=== PATIENT | male | born 1965 | race Caucasian/White ===

== ENCOUNTER → 2021-05-07 | Day surgery (SDC) | payer OTHER ==
[~2021-05-07] VITALS: Ht 180.3 cm; Wt 106.6 kg
[~2021-05-07] MED LIST: ASPIRIN EC81 MG PO; ATORVASTATIN CA80 MG PO; COZAAR100 MG PO; FARXIGA10 MG PO; GLIMEPIRIDE1 MG PO; METOPROLOL SUCC50 MG PO; PERCOCET 5-3251 EACH PO; TALTZ AUTO80 MG/1 ML IJ; TRULICITY1.5 MG/0.5 IJ
[2021-05-07 10:07] LABS: BUN/CREAT RATIO (CALC) 26.2 RATIO; CREATININE 0.65 mg/dL (0.67-1.17); POTASSIUM 4.2 mmol/L (3.5-5.1)
== END | disposition home or self-care (01) ==
LOC: FAS 08:10
PROVIDERS: Anesthesiology
DX: K43.6 Other and unspecified ventral hernia with obstruction, without gangrene (principal); E66.9 Obesity, unspecified; E11.9 Type 2 diabetes mellitus without complications; I25.10 Atherosclerotic heart disease of native coronary artery without angina pectoris; I10 Essential (primary) hypertension; J44.9 Chronic obstructive pulmonary disease, unspecified; E78.00 Pure hypercholesterolemia, unspecified; Z87.891 Personal history of nicotine dependence; Z79.82 Long term (current) use of aspirin; Z95.1 Presence of aortocoronary bypass graft; Z88.8 Allergy status to other drugs, medicaments and biological substances; Z98.52 Vasectomy status; Z72.89 Other problems related to lifestyle
CPT/HCPCS: 36415; 80048; 93005; J0690; J1100; J1885; J2250; J2310; J2405; J2704; J3010; J7120